=== PATIENT | female | born 1970 | race Caucasian/White ===

== ENCOUNTER 2017-04-05 17:41 | Emergency (ER) | payer MEDICAID ==
[2017-04-05 17:54] VITALS: RESP 18
[2017-04-05] MEDS ORDERED: Sodium Chloride 0.9% 1,000 ML IV ONE (18:39)
[2017-04-05 19:22] LABS: BASO # 0.1 K/uL (0.0-0.2); BASO % 0.9 % (0.0-2.0); EOS # 0.1 K/uL (0.0-0.7); EOS % 1.2 % (0.0-4.0); HEMATOCRIT 31.2 % (34.0-47.0); LYMPH # 1.3 K/uL (1.0-4.3); LYMPH % 16.3 % (20.0-40.0); MEAN CELL VOLUME 65.9 fL (81.0-99.0); MEAN CORPUSCULAR HEMOGLOBIN 20.8 pg (27.0-31.0); MEAN CORPUSCULAR HGB CONC 31.5 g/dL (33.0-37.0); MEAN PLATELET VOLUME 8.2 fL (7.2-11.7); MONO # 0.6 K/uL (0.0-0.8); MONO % 8.1 % (0.0-10.0); NRBC % 0.1 % (0.0-2.0); RED CELL DISTRIBUTION WIDTH 19.7 % (11.5-14.5); WHITE BLOOD COUNT 7.9 K/uL (4.8-10.8)
[2017-04-05 19:26] LABS: CHLORIDE 100 mmol/L (98-107); POTASSIUM 3.8 mmol/L (3.6-5.2); SODIUM 137 mmol/L (132-148)
[2017-04-05 19:28] LABS: ALB/GLOB RATIO 1.2 (1.0-2.1); AST/SGOT 26 U/L (14-36); BILIRUBIN,TOTAL 0.5 mg/dL (0.2-1.3); BLOOD UREA NITROGEN 10 mg/dL (7-17); CARBON DIOXIDE 20 mmol/L (22-30); GFR AFRICAN-AMERICAN > 60; TOTAL PROTEIN 7.4 g/dL (6.3-8.3)
[2017-04-05 19:29] LABS: ALKALINE PHOSPHATASE 59 U/L (38-126); ALT/SGPT 32 U/L (9-52); CALCIUM 8.7 mg/dl (8.6-10.4); GLUCOSE,RANDOM 122 mg/dL (65-105)
[2017-04-05 19:33] LABS: RBC URINE 1 /hpf (0-3); URINE BACTERIA RARE (<OCC); URINE BILIRUBIN NEGATIVE (NEGATIVE); URINE BLOOD NEGATIVE (NEGATIVE); URINE COLOR Straw (YELLOW); URINE GLUCOSE (UA) NORMAL (Normal); URINE KETONE NEGATIVE (NEGATIVE); URINE LEUKOCYTE ESTERASE NEG Leu/uL (Negative); URINE PROTEIN NEGATIVE (NEGATIVE); URINE UROBILINOGEN NORMAL mg/dL (0.2-1.0); WBC URINE < 1 /hpf (0-5)
--- NOTE | 2017-04-05 19:48 | C.PDOC ---
History Of Present Illness 46 year old female who presents to the ER after having sudden episodes of anxiety, weakness, and profound lethargy; associated with panic. Patient has a Hx of similar symptoms; she reports her symptoms today resolved prior to evaluation. Denies chest pain, palpitations, or SOB. Time Seen by Provider: 04/05/17 18:38 Chief Complaint (Nursing): Weakness/Neurological Deficit History Per: Patient History/Exam Limitations: no limitations Onset/Duration Of Symptoms: Hrs Current Symptoms Are (Timing): Still Present Activity At Onset Of Symptoms: Other (Not known) Seizure Or Post-ictal Symptoms: None Recent travel outside of the [place]: No - Symptoms Of CVA Associated Symptoms: denies: Impaired Speech, Seizure Activity, New Vision Deficit(Left), New Vision Deficit(Right), Decreased Ability To Walk, New Confusion, Other Past Medical History Reviewed: Historical Data, Nursing Documentation, Vital Signs Vital Signs: Last Vital Signs Temp 98.0 F 04/05/17 20:05 Pulse 82 04/05/17 20:05 Resp 18 04/05/17 20:05 BP 147/84 04/05/17 20:05 Pulse Ox 96 04/05/17 20:05 - Medical History PMH: HTN Surgical History: No Surg Hx Family History: States: Unknown Family Hx - Social History Hx Alcohol Use: No Hx Substance Use: No - Immunization History Hx Tetanus Toxoid Vaccination: No Hx Influenza Vaccination: No Hx Pneumococcal Vaccination: No Review Of Systems Constitutional: Positive for: Weakness, Other (Lethargy). Negative for: Fever, Chills Cardiovascular: Negative for: Chest Pain, Palpitations Respiratory: Negative for: Shortness of Breath Psych: Positive for: Anxiety, Other (Panic) Physical Exam - Physical Exam Appears: Non-toxic, Other (Anxious) Skin: Normal Color, Warm, Dry Head: Atraumatic, Normacephalic Oral Mucosa: Moist Chest: Symmetrical, No Tenderness Cardiovascular: Rhythm Regular, No Murmur Respiratory: Normal Breath Sounds, No Rales, No Rhonchi, No Wheezing Gastrointestinal/Abdominal: Soft, No Tenderness Neurological/Psych: Oriented x3, Normal Speech, Normal Cognition ED Course And Treatment - Laboratory Results Result Diagrams: 04/05/17 19:15 04/05/17 19:15 Lab Interpretation: Normal (d-dimer neg, baseline anemia) ECG: Interpreted By Me ECG Rhythm: Sinus Rhythm ECG Interpretation: Normal Rate From EC O2 Sat by Pulse Oximetry: 95 Pulse Ox Interpretation: Normal - Radiology CXR: Interpreted by Me CXR Interpretation: Yes: No Acute Disease Progress Note: EKG and CXR ordered. IV fluids administered. Reevaluation Time: 19:49 Reassessment Condition: Unchanged (stable, comfortable, anxious) Medical Decision Making Medical Decision Making: baseline iron def anemia, from menstrual DUB, normal recent pelvic US baseline anxiety Disposition Doctor Will See Patient In The: Office Counseled Patient/Family Regarding: Studies Performed, Diagnosis - Disposition Referrals: [facility] [place] [Outside] [facility] [Outside] [facility] [Outside] Shaik Tompkins MD [Staff Provider] - Disposition: HOME/ ROUTINE Disposition Time: 19:50 Condition: GOOD Additional Instructions: sigue tomandu smith pradeep diario vickey dirijido Delmis la anxieded Sigue smith evaluacion' psychiatrico con [facility] vickey necessario. Instructions: Iron Deficiency Anemia (ED), Anxiety (ED) Forms: [employer] (Italian) Print Language: GRENADIAN - Clinical Impression Clinical Impression: Anxiety - Scribe Statement The provider has reviewed the documentation as recorded by the Scribe Edgar Duckworth All medical record entries made by the Scribe were at my direction and personally dictated by me. I have reviewed the chart and agree that the record accurately reflects my personal performance of the history, physical exam, medical decision making, and the department course for this patient. I have also personally directed, reviewed, and agree with the discharge instructions and disposition.
[2017-04-05 20:22] VITALS: BP 147/84; PULSE 82; TEMP 98
[2017-04-05 21:13] VITALS: O2SAT 95
--- NOTE | 2017-04-06 08:50 | RAD ---
PROCEDURE: CHEST RADIOGRAPH, 1 VIEW HISTORY: Shortness of breath COMPARISON: None available. FINDINGS: LUNGS: Mild venous congestion. PLEURA: No pneumothorax or pleural fluid seen. CARDIOVASCULAR: Normal. OSSEOUS STRUCTURES: No significant abnormalities. VISUALIZED UPPER ABDOMEN: Normal. OTHER FINDINGS: None. IMPRESSION: Mild venous congestion.
--- NOTE | 2017-04-06 19:15 | CARD ---
APPROVED REPORT EKG Measurement Heart [id number] OR 126P50 [id number] <Conclusion> Normal sinus rhythm Nonspecific T wave abnormality Prolonged QT Abnormal ECG
== END 2017-04-05 20:24 | disposition home or self-care (01) ==
LOC: C.ER 17:41
DX: F41.9 Anxiety disorder, unspecified (principal)

== ENCOUNTER 2017-11-02 06:36 | Emergency (ER) | payer MEDICAID ==
[2017-11-02 06:36] VITALS: BMI 28.3
[2017-11-02] MEDS ORDERED: DiphenhydrAMINE 50 mg/ml Inj IVP STA (07:50)
--- NOTE | 2017-11-02 08:26 | C.PDOC ---
History Of Present Illness 47-year-old female, presents to the emergency department with complaints of intermittent chest pain for the past four days. Pain is non-radiating, midsternal and pressure-like in nature. Patient was seen by PMD yesterday, and had an EKG done. Patient was discharged and went home, states her symptoms persisted, resulting in her coming to ED for evaluation. Secondary complaint is a frontal, non-radiating headache x4 months. Patient denies nausea/vomiting, dizziness, neck/back pain, numbness/weakness, fever, or any other associated symptoms. No other complaints at this time. Chief Complaint (Nursing): Dizziness/Lightheaded History Per: Patient History/Exam Limitations: no limitations Onset/Duration Of Symptoms: Days Current Symptoms Are (Timing): Still Present Past Medical History Reviewed: Historical Data, Nursing Documentation, Vital Signs Vital Signs: Last Vital Signs Temp 98.8 F 11/02/17 11:13 Pulse 89 11/02/17 11:13 Resp 18 11/02/17 11:13 BP 102/62 11/02/17 11:13 Pulse Ox 97 11/02/17 11:13 - Medical History PMH: Anemia, Anxiety (PANIC ATTACKS), HTN, Hypercholesterolemia Family History: States: No Known Family Hx - Social History Hx Alcohol Use: No Hx Substance Use: No - Immunization History Hx Tetanus Toxoid Vaccination: No Hx Influenza Vaccination: No Hx Pneumococcal Vaccination: No Review Of Systems Except As Marked, All Systems Reviewed And Found Negative. Constitutional: Negative for: Fever, Chills Cardiovascular: Positive for: Chest Pain. Negative for: Palpitations, Light Headedness Respiratory: Negative for: Shortness of Breath Gastrointestinal: Negative for: Vomiting Musculoskeletal: Negative for: Neck Pain, Back Pain Neurological: Positive for: Headache. Negative for: Weakness, Numbness, Dizziness Physical Exam - Physical Exam Appears: Non-toxic, No Acute Distress Skin: Normal Color, Warm, Dry, No Rash Head: Normacephalic Eye(s): bilateral: PERRL Nose: Normal Oral Mucosa: Moist Neck: Normal ROM, Supple Cardiovascular: Rhythm Regular, No Murmur Respiratory: Normal Breath Sounds, No Accessory Muscle Use Gastrointestinal/Abdominal: Soft, No Tenderness Back: Normal Inspection, No CVA Tenderness Extremity: Normal ROM, No Tenderness, No Deformity, No Swelling Neurological/Psych: Oriented x3, Normal Speech, Normal Motor Gait: Steady ED Course And Treatment - Laboratory Results Result Diagrams: 11/02/17 08:37 11/02/17 08:37 ECG: Interpreted By Me, Viewed By Me ECG Rhythm: Sinus Rhythm ECG Interpretation: No Acute Changes (04/05/17) Interpretation Of ECG: T wave abnormality in V1-V3, and AVL. Rate From EC O2 Sat by Pulse Oximetry: 99 (RA) Pulse Ox Interpretation: Normal Against Medical Advice - AMA Patient Left Against Medical Advice: The patient declines admission to the hospital and wishes to leave the Emergency Department. This action is against my medical advice. This decision was made with informed refusal. The patient was told that admission to the hospital is necessary. Explanation of the reasons why were discussed. The risks of leaving were explained to the patient and include, but are not limited to, worsening of known or currently unknown conditions, permanent disability and from undiagnosed or untreated conditions. The patient has the capacity to make this informed decision and understands my explanation of the current medical problem and risks of leaving. The patient voluntarily accepts these risks and signed an AMA form documenting our conversation. The patient was given the opportunity to ask questions and reconsider. The patient was encouraged to return to the Emergency Department at any time for further care. Medical Decision Making Medical Decision Making: Plan: * CT Head, bloodwork, CXR and UA ordered and reviewed. Patient treated with Benadryl, Reglan, Tylenol. The patient reports refusal of observation admission for chest pain. Stating that she feels better and wishes to go home. On re-exam, the patient reports improvement of symptoms. Lungs are CTA, heart is RRR, abdomen is soft, non- tender and tolerating PO well. Ambulatory in the ED with steady gait Disposition - Disposition Referrals: Agustín Ramirez MD [Staff Provider] - Pete Harper MD [Staff Provider] - Disposition: AGAINST MEDICAL ADVICE Disposition Time: 10:55 Condition: GOOD Additional Instructions: Follow up with the medical doctor within 1-2 days. Return if worsened. Prescriptions: Metoclopramide [Reglan] 1 tab PO TID PRN #25 tab PRN Reason: Nausea/Vomiting Instructions: Headache, Adult, Chest Pain Forms: [employer] (Guatemalan), Work Excuse Print Language: SERBIAN - Clinical Impression Clinical Impression: Chest pain, Headache - Scribe Statement The provider has reviewed the documentation as recorded by the Scribe (Peterson Graham) All medical record entries made by the Scribe were at my direction and personally dictated by me. I have reviewed the chart and agree that the record accurately reflects my personal performance of the history, physical exam, medical decision making, and the department course for this patient. I have also personally directed, reviewed, and agree with the discharge instructions and disposition.
--- NOTE | 2017-11-02 08:50 | CT ---
PROCEDURE: CT HEAD WITHOUT CONTRAST. HISTORY: Headache COMPARISON: None available. TECHNIQUE: Axial computed tomography images were obtained through the head/brain without intravenous contrast. Radiation dose: Total exam DLP = 801 mGy-cm. This CT exam was performed using one or more of the following dose reduction techniques: Automated exposure control, adjustment of the mA and/or kV according to patient size, and/or use of iterative reconstruction technique. FINDINGS: HEMORRHAGE: No intracranial hemorrhage. BRAIN: No mass effect or edema. No atrophy or chronic microvascular ischemic changes. VENTRICLES: Unremarkable. No hydrocephalus. CALVARIUM: Unremarkable. PARANASAL SINUSES: Unremarkable as visualized. No significant inflammatory changes. MASTOID AIR CELLS: Unremarkable as visualized. No inflammatory changes. OTHER FINDINGS: None. IMPRESSION: No acute intracranial abnormality. If headache persists, consider further evaluation with MRI.
[2017-11-02 08:55] LABS: BASO % 0.6 % (0.0-2.0); EOS # 0.1 K/uL (0.0-0.7); EOS % 1.1 % (0.0-4.0); HEMOGLOBIN 10.5 g/dL (11.0-16.0); LYMPH # 1.7 K/uL (1.0-4.3); LYMPH % 22.5 % (20.0-40.0); MEAN CORPUSCULAR HEMOGLOBIN 23.1 pg (27.0-31.0); MEAN CORPUSCULAR HGB CONC 32.7 g/dL (33.0-37.0); MEAN PLATELET VOLUME 8.2 fL (7.2-11.7); MONO # 0.5 K/uL (0.0-0.8); MONO % 7.1 % (0.0-10.0); NEUT # 5.1 K/uL (1.8-7.0); NEUT % 68.7 % (50.0-75.0); RBC 4.57 Mil/uL (3.80-5.20); RED CELL DISTRIBUTION WIDTH 19.7 % (11.5-14.5); WHITE BLOOD COUNT 7.5 K/uL (4.8-10.8)
[2017-11-02 08:56] LABS: MEAN CELL VOLUME 70.6 fL (81.0-99.0)
[2017-11-02] MEDS ORDERED: DiphenhydrAMINE 50 mg/ml Inj ONE (09:00)
[2017-11-02 09:01] LABS: HCG,QUALITATIVE URINE NEGATIVE (NEGATIVE); SQUAMOUS EPITHIAL < 1 /hpf (0-5); URINE BILIRUBIN NEGATIVE (NEGATIVE); URINE BLOOD NEGATIVE (NEGATIVE); URINE CLARITY Clear (Clear); URINE COLOR Straw (YELLOW); URINE GLUCOSE (UA) 1+ mg/dL (Normal); URINE LEUKOCYTE ESTERASE NEG Leu/uL (Negative); URINE NITRATE NEGATIVE (NEGATIVE); URINE PROTEIN NEGATIVE (NEGATIVE); URINE UROBILINOGEN NORMAL mg/dL (0.2-1.0)
[2017-11-02 09:02] LABS: INR 1.1; PROTHROMBIN TIME 12.2 SECONDS (9.7-12.2)
--- NOTE | 2017-11-02 09:13 | RAD ---
PROCEDURE: CHEST RADIOGRAPH, 1 VIEW HISTORY: Chest pain COMPARISON: 04/05/2017. FINDINGS: LUNGS: The lungs are well inflated and clear. PLEURA: No pneumothorax or pleural fluid seen. CARDIOVASCULAR: Normal. OSSEOUS STRUCTURES: No significant abnormalities. VISUALIZED UPPER ABDOMEN: Normal. OTHER FINDINGS: None. IMPRESSION: No active pulmonary disease.
[2017-11-02 09:31] LABS: B-TYPE NATRIURETIC PEPTIDE 33.8 pg/mL (0-450)
[2017-11-02 09:47] LABS: ALB/GLOB RATIO 1.2 (1.0-2.1); ALBUMIN 4.1 g/dL (3.5-5.0); ALT/SGPT 23 U/L (9-52); AST/SGOT 25 U/L (14-36); BLOOD UREA NITROGEN 10 mg/dL (7-17); CALCIUM 9.7 mg/dl (8.6-10.4); GFR AFRICAN-AMERICAN > 60; GFR NON-AFRICAN AMERICAN > 60
[2017-11-02 11:23] VITALS: BP 102/62; PULSE 89; RESP 18; TEMP 98.8
--- NOTE | 2017-11-03 07:51 | CARD ---
APPROVED REPORT EKG Measurement Heart [id number] 132P59 [id number] <Conclusion> Normal sinus rhythm T wave abnormality, consider anterior ischemia Abnormal ECG
[2017-11-04 19:00] VITALS: O2SAT 99
== END 2017-11-02 11:23 | disposition left against medical advice (07) ==
LOC: C.ER 06:36
DX: R07.9 Chest pain, unspecified (principal); R51 Headache; E78.00 Pure hypercholesterolemia, unspecified; I10 Essential (primary) hypertension
CPT/HCPCS: 70450; 71045; 80053; 81001; 83880; 84484; 84703; 85025; 85610; 85730; 93005; 96374; 96375; 99285; J1200; J2765